=== PATIENT | female | born 1990 | race Two or more races ===

== ENCOUNTER 2018-08-02 14:22 | Emergency (ER) | payer OTHER ==
[~2018-08-02] VITALS: Ht 172.7 cm; Wt 125.0 kg
[2018-08-02 14:55] LABS: BASO % 0.4 % (0.0-1.0); EOS # 0.2 10^3/uL (0.0-0.50); HEMATOCRIT 39.2 % (36.0-47.0); HEMOGLOBIN 12.9 g/dl (12.0-15.5); LYMPH % 28.6 % (24.0-44.0); MEAN CORPUSCULAR HEMOGLOBIN 30.3 pg (27.0-33.0); MEAN CORPUSCULAR HGB CONC 32.9 g/dl (32.0-36.5); MONO # 0.3 10^3/uL (0.0-0.8); NEUTROPHILS # 4.5 10^3/uL (1.8-7.7); NEUTROPHILS % 63.7 % (36.0-66.0); PLATELET COUNT, AUTOMATED 284 10^3/uL (150-450); RED BLOOD COUNT 4.26 10^6/uL (4.00-5.40)
[2018-08-02 16:48] VITALS: BP 125/85
--- NOTE | 2018-08-02 17:16 | REP ---
PELVIC ULTRASOUND: Real-time sonographic evaluation of the pelvis performed utilizing transabdominal and endovaginal technique. The bladder measures 4.9 x 3.4 x 5.2 cm. Uterus measures 7.2 x 3.8 x 5.6 cm. The uterus is empty. Endometrial thickness 5 mm. Reportedly the patient has had recent methotrexate therapy for ectopic . Ovaries are normal in size and echotexture, right ovary measuring 2.6 x 2.0 x 1.8 cm and left ovary 2.5 x 1.2 x 1.2 cm. There is no adnexal mass or free fluid. There is no torsion of either ovary with duplex Doppler evaluation. IMPRESSION: Empty uterus. No adnexal mass or free fluid. No torsion. Electronically Signed by Tray Lowe MD 08/02/2018 08:19 P
== END 2018-08-02 16:50 | disposition home or self-care (01) ==
LOC: M ED 14:22
DX: R10.2 Pelvic and perineal pain (principal); N93.9 Abnormal uterine and vaginal bleeding, unspecified; F17.210 Nicotine dependence, cigarettes, uncomplicated

== ENCOUNTER → 2019-08-30 | Outpatient (REF) | payer OTHER | LOC: M SFHCLERA 12:57 | PROVIDERS: ATTEND Nurse Practitioner Family | DX: R50.9 Fever, unspecified (principal) | CPT/HCPCS: 87486; 87581; 87633; 87798; 87804; G0463 ==